=== PATIENT | male | born 1955 | race Caucasian/White ===

== ENCOUNTER 2021-06-18 16:28 | Inpatient (IN) | payer MEDICARE ==
[~2021-06-18] VITALS: Ht 177.8 cm; Wt 88.0 kg
[2021-06-18 16:39] VITALS: BP 142/86
[2021-06-18] MEDS ORDERED: RAYOS5 MG PO (16:44)
[2021-06-18] MEDS ORDERED: LISINOPRIL10 MG PO (16:45)
[2021-06-18 17:12] LABS: HEMATOCRIT 54.4 % (42.0-52.0); HEMOGLOBIN 17.8 gm/dL (14.0-18.0); MCH 30.7 pg (26.0-34.0); MCHC 32.7 g/dL (28.0-37.0); MCV 93.8 fL (80.0-100.0); MPV 9.8 fl. (7.2-11.1); NUCLEATED RBCS 0 /100WBC; PLATELET COUNT* 252 thou/uL (150-400); RBC 5.79 mil/uL (4.50-6.00); RDW-CV 13.8 % (10.5-14.5); WBC 14.2 thou/uL (4.0-11.0)
[2021-06-18 17:37] LABS: ALBUMIN 3.6 g/dL (3.4-5.0); CALCIUM 8.7 mg/dL (8.5-10.1); CREATININE 1.2 mg/dL (0.6-1.3); MAGNESIUM 2.2 mg/dL (1.8-2.4); TOTAL BILIRUBIN 0.5 mg/dL (<0.1-1.0); TOTAL PROTEIN 8.1 g/dL (6.4-8.2)
[2021-06-18 17:41] LABS: POTASSIUM 6.3 mmol/L (3.5-5.1)
[2021-06-18 17:56] LABS: ABSOLUTE LYMPHOCYTES 0.3 thou/uL (0.8-5.3); ABSOLUTE MONOCYTES 0.4 thou/uL (0.0-1.2); ABSOLUTE NEUTROPHILS 13.5 thou/uL (1.6-8.1); PLATELET ESTIMATE ADEQUATE
[2021-06-18 21:43] VITALS: BP 82/44
[2021-06-19] VITALS (12 sets, daily range): BP systolic 80–109; BP diastolic 48–68
[2021-06-19 02:45] LABS: CALCIUM 7.4 mg/dL (8.5-10.1); CREATININE 0.9 mg/dL (0.6-1.3)
[2021-06-19 02:50] LABS: POTASSIUM 5.1 mmol/L (3.5-5.1)
--- NOTE | 2021-06-19 08:50 | NUR ---
PT'S SPOUSE, CIERRA, CALLED FOR UPDATE ON THE PATIENT. CIERRA WAS GIVEN UPDATE WITH PATIENT'S PERMISSION. CIERRA INFORMED THIS RN THAT THE PATIENT IS A DNR AND HAS SEVERE EMPHYSEMA. PT DOES HAVE HOSPICE PICKED OUT IF NEEDED.
--- NOTE | 2021-06-19 10:05 | NUR ---
ASSUMED PT CARE AT THIS TIME
[2021-06-19 12:06] LABS: INFLUENZA A ANTIGEN Negative (Negative); INFLUENZA B ANTIGEN Negative (Negative)
--- NOTE | 2021-06-19 13:15 | EKG ---
[place] [address] ELECTROCARDIOGRAM REPORT Name: SANGEETA MILES Room: [address] ADM IN M.R.#: [id number] Admission: 06/18/21 Attend Phys: Jeffrey Knapp Discharge: Date of : 51 Date of Service: 06/18/21 1648 Report #: [id number] THIS REPORT FOR: //name// [facility] ED Test Date: 2021-06-18 Test Time: 16:48:01 Pat Name: SANGEETA MILES Department: Room: [facility] Gender: M Tank Builder: ABDIAS : 1955 Requested By: Castillo Rendon Order Number: [id number] MD: Ajay Del Rosario Measurements Intervals [place] Rate: 121 P: 86 IA: 166 QRS: 165 QRSD: 89 T: 64 QT: 299 QTc: 425 Interpretive Statements Sinus tachycardia Consider right atrial enlargement Anterior infarct, old ST elevation suggests acute pericarditis Artifact in lead(s) I,II,aVR,V1,V6 No previous ECG available for comparison Electronically Signed On 06-19-2021 13:15:15 TAKE AWAY WORKER by Ajay Del Rosario [email or web address] <ELECTRONICALLY SIGNED> By: Ajay Del Rosario MD, FACC 06/19/21 1315 1648 1648 Ajay Del Rosario MD, FAC /EPI
--- NOTE | 2021-06-19 18:42 | NUR ---
PATIENT ARRIVED TO THE UNIT AT 1145. O2 AT 10L PER NL. SYSTEM ASSESSMENT CHARTED. CURRENTLY IN ISOLATION. PERSONAL BELONGINGS AT THE BEDSIDE. PHARMACY AND CONSULTS NOTIFIED OF ADMIT. WILL CONTINUE PLAN OF CARE.
[2021-06-20] VITALS (25 sets, daily range): BP systolic 80–138; BP diastolic 47–79
[2021-06-20 04:19] LABS: HEMATOCRIT 43.4 % (42.0-52.0); MCH 29.7 pg (26.0-34.0); MCHC 31.7 g/dL (28.0-37.0); MCV 93.8 fL (80.0-100.0); MPV 8.8 fl. (7.2-11.1); RBC 4.62 mil/uL (4.50-6.00); RDW-CV 13.7 % (10.5-14.5); WBC 11.2 thou/uL (4.0-11.0)
[2021-06-20 04:34] LABS: HEMOGLOBIN 13.7 gm/dL (14.0-18.0)
[2021-06-20 04:37] LABS: ALBUMIN 2.2 g/dL (3.4-5.0); CALCIUM 7.3 mg/dL (8.5-10.1); CREATININE 0.7 mg/dL (0.6-1.3); MAGNESIUM 2.1 mg/dL (1.8-2.4); POTASSIUM 4.5 mmol/L (3.5-5.1); TOTAL BILIRUBIN 0.2 mg/dL (<0.1-1.0); TOTAL PROTEIN 5.1 g/dL (6.4-8.2)
--- NOTE | 2021-06-20 07:21 | NUR ---
REPORT RECIEVED AT BEGINNING OF SHIFT AND CARE ASSUMMED. PT AAOX4 NO ACUTE DISTRESS AT THIS TIME. PT HAS BEEN AWAKE MOST OF THE SHIFT BUT DENIES DISTRESS OR PAIN. PT DESATS QUICKLY WITH SLOW RECOVERY WHEN UP ON SIDE OF BED TO USE URINAL. IV NS INFUSING AT 150CC/HR VIA PUMP ORDERED. SEE CHART FOR VS AND MEDICATIONS. MONITORS INTACT. WILL CONTINUE TO MONITOR.
--- NOTE | 2021-06-20 11:55 | 2DMMODE ---
[place] [address] 2 D/M-MODE ECHOCARDIOGRAM Name: SANGEETA MILES Room: [address] IN Michelle.#: [id number] Admission: 06/18/21 Attend Phys: Jeffrey Knapp Discharge: Date of : 51 Date of Service: 06/20/21 1154 Report #: [id number] THIS REPORT FOR: cc: Chemo Tineo MD, Jean MD Blick,Alex Burt MD [facility] ~ APPROVED REPORT Study performed: 06/20/2021 09:26:04 EXAM: Comprehensive 2D, Doppler, and color-flow Echocardiogram Patient Location: In-Patient Room #: 002 Status: routine BSA: 2.06 HR: 92 bpm BP: 81/47 mmHg Rhythm: NSR Other Information Study Quality: Good Technically limited study due to poor apical windows. Indications Cardiomegaly 2D Dimensions IVSd: 7.91 (7-11mm) LVOT Diam: 20.70 (18-24mm) LVDd: 32.67 mm PWd: 6.60 (7-11mm) Ascending Ao: 32.31 (22-36mm) LVDs: 18.62 (25-40mm) Aortic Valve AoV Peak Alexey.: 1.01 m/s AO Peak Gr.: 4.12 mmHg LVOT Max P.10 mmHg AO Mean Gr.: 2.63 mmHg LVOT Mean P.99 mmHg LVOT Max V: 0.88 m/s AO V2 VTI: 19.55 cm LVOT Mean V: 0.69 m/s GIOVANI (VTI): 3.23 cm2 LVOT V1 VTI: 18.79 cm Mitral Valve MV Decel. Time: 146.72 ms MV E Max Alexey.: 1.11 m/[place] [address] 2 D/M-MODE ECHOCARDIOGRAM Name: SANGEETA MILES Room: [address] IN .R.#: [id number] Admission: 06/18/21 Attend Phys: Jeffrey Knapp Discharge: Date of : 51 Date of Service: 06/20/21 1154 Report #: [id number] MV PHT: 42.55 ms MVA (PHT): 5.17 cm2 Pulmonary Valve PV Peak Alexey.: 1.06 m/s PV Peak Gr.: 4.52 mmHg Left Ventricle The left ventricle is normal size. There is normal LV segmental wall motion. There is normal left ventricular wall thickness. Left ventricular systolic function is normal. The left ventricular ejection fraction is within the normal range. LVEF is 60-65%. The left ventricular diastolic function is normal. Right Ventricle Right ventricle is dilated. The right ventricular systolic function is normal. Atria The left atrium size is normal. Right atrium is dilated. Aortic Valve The aortic valve is normal in structure. No aortic regurgitation is present. There is no aortic valvular stenosis. Mitral Valve The mitral valve is normal in structure. There is no mitral valve regurgitation noted. No evidence of mitral valve stenosis. Tricuspid Valve The tricuspid valve is normal in structure. There is no tricuspid valve regurgitation noted. Pulmonic Valve The pulmonary valve is normal in structure. There is no pulmonic valvular regurgitation. Great Vessels The aortic root is normal in size. IVC is normal in size and collapses >50% with inspiration. Pericardium There is no pericardial effusion. <Conclusion> [place] [address] 2 D/M-MODE ECHOCARDIOGRAM Name: SANGEETA MILES Room: [address] IN .R.#: [id number] Admission: 06/18/21 Attend Phys: Jeffrey Knapp Discharge: Date of : 51 Date of Service: 06/20/21 1154 Report #: [id number] LVEF is 60-65%. Right ventricle is dilated. <ELECTRONICALLY SIGNED> By: Alex Almodovar MD, [facility] 06/20/21 1154 1154 1154 Alex Almodovar MD, FACC /INF
--- NOTE | 2021-06-20 13:46 | NUR ---
Pt is admitted to the hospital with Covid/elevated Troponin on 06/18/21. Called sister - Chloe Petersen at: [phone] to complete assessment. She reports pt lives in a house with his estranged with 2 steps to enter. Pt ambulates independently but requires 4 liters of oxygen. Sister didn't know what oxygen company pt utilizes. Pt was previously independent in ADL's. No hx of SNF/HH. Sister reports her brother had a telemed visit with his PCP last week. Sister reports when pt was last admitted to [facility] he completed DPOA paperwork listing herself and his son - Levon ([phone]) who lives in [place], [place] as DPOA, but that she didn't have a copy. CM to continue to follow for discharge planning.
[2021-06-20 15:33] LABS: INR 1.1; PROTIME 11.4 Seconds (9.20-11.50)
[2021-06-21] VITALS (15 sets, daily range): BP systolic 88–139; BP diastolic 53–81
[2021-06-21 04:21] LABS: HEMATOCRIT 44.1 % (42.0-52.0); HEMOGLOBIN 14.3 gm/dL (14.0-18.0); MCH 30.3 pg (26.0-34.0); MCHC 32.5 g/dL (28.0-37.0); MCV 93.4 fL (80.0-100.0); MPV 8.9 fl. (7.2-11.1); RBC 4.72 mil/uL (4.50-6.00); RDW-CV 13.8 % (10.5-14.5); WBC 11.1 thou/uL (4.0-11.0)
[2021-06-21 04:39] LABS: ALBUMIN 2.3 g/dL (3.4-5.0); CALCIUM 7.7 mg/dL (8.5-10.1); CREATININE 0.7 mg/dL (0.6-1.3); MAGNESIUM 2.3 mg/dL (1.8-2.4); POTASSIUM 4.6 mmol/L (3.5-5.1); TOTAL BILIRUBIN 0.2 mg/dL (<0.1-1.0); TOTAL PROTEIN 5.3 g/dL (6.4-8.2)
--- NOTE | 2021-06-21 05:46 | NUR ---
Pt has rested well through the shift, he remains alert and oriented, rouses easily for cares, denies any discomfort. Vitals are stable, urine output is adequate. Pt has transfer orders.
--- NOTE | 2021-06-21 08:13 | CON ---
[facility] [address] [place] [address] CONSULTATION Name: SANGEETA MILES Room: [address] IN M.R.#: [id number] Admission: 06/18/21 Attend Phys: Nicole Gay Discharge: Date of : 51 Report #: [id number] THIS REPORT FOR: cc: Chemo Tineo MD,Chemo Del Rosario,Ajay Miguel MD FACC ~ cc: Chemo Tieno MD DATE OF CONSULTATION: 06/19/2021 CARDIOLOGY CONSULT INDICATION: Elevated troponin. HISTORY OF PRESENT ILLNESS: The patient is a very pleasant 65-year-old gentleman who was admitted to the hospital with COVID pneumonia. In this setting, he is noted to have a minimally elevated troponin of approximately 100. Primary complaint on admission to the hospital was shortness of breath. He has a long history of COPD. He wears oxygen at home. He is not having chest pain. He was having shortness of breath at rest and dyspnea. Since admission, the patient has received breathing treatments and other treatments and is now no longer complaining of significant shortness of breath. PAST MEDICAL HISTORY: 1. Hypertension. 2. COPD. HOME MEDICATIONS: Prednisone and lisinopril. ALLERGIES: SULFA. SOCIAL HISTORY: The patient smokes 2-3 cigarettes daily. He does not drink alcohol. REVIEW OF SYSTEMS: As per HPI, otherwise unremarkable. PHYSICAL EXAMINATION: VITAL SIGNS: Stable. Blood pressure 102/63, pulse is 77 and regular. Telemetry shows sinus rhythm. GENERAL: This is a thin, pleasant gentleman in no distress. Mood and affect appropriate. HEENT: The patient is wearing glasses. Extraocular muscles intact. Mucous membranes are moist. NECK: Shows no jugular venous distention. CHEST: Reveals diminished breath sounds throughout without [place] [address] CONSULTATION Name: SANGEETA MILES Room: [address] IN [facility]#: [id number] Admission: 06/18/21 Attend Phys: Nicole Gay Discharge: Date of : 51 Report #: [id number] CARDIAC: Reveals a distant S1 and S2 without gallop or murmur. ABDOMEN: Scaphoid, soft and nontender. Bowel sounds present. EXTREMITIES: No clubbing, cyanosis or edema. DIAGNOSTIC DATA: EKG shows sinus rhythm without acute ST or T-wave abnormality. There is late transition noted. Chest x-ray shows hyperexpanded lung volumes. LABORATORY DATA: Reviewed. Electrolytes within normal limits. BUN 25, creatinine 0.9, serum glucose 129. High sensitivity troponins 109, 199, 197 and 110. White blood cell count 14.2, hemoglobin 17.8, platelet count 252,000. IMPRESSION AND RECOMMENDATIONS: 1. Minimally elevated troponin. The patient is not having any symptoms to suggest acute coronary syndrome. We will obtain echocardiogram to evaluate underlying cardiac structure and function. At this point, I do not think further noninvasive or invasive evaluation necessary. We will follow clinically. 2. Hypertension. Presently low normal on home regimen. We would make no adjustments at this time. 3. Chronic obstructive pulmonary disease. Per hospitalist. 4. COVID-19 infection. <ELECTRONICALLY SIGNED> By: Ajay Del Rosario MD, FACC 06/21/21 0813 1140 [id number] jay Del Rosario MD, FACC /nt
--- NOTE | 2021-06-21 18:52 | NUR ---
[facility] at 1820. Pt was transfered from ICU. Pt is alert and oriented. Denies any pain. Pt was made comfortable. Pt was placed on oxgyen. Pt sitting up in the bed. Will continue to provide care for patient.
--- NOTE | 2021-06-21 19:16 | CON ---
[address] [address] CONSULTATION Name: SANGEETA MILES Room: [address] IN M.R.#: [id number] Admission: 06/18/21 Attend Phys: Nicole Gay Discharge: Date of : 51 Report #: [id number] THIS REPORT FOR: cc: Chemo Tineo MD, Jean MD Pervez,Nishant JOSHUA ~ DATE OF CONSULTATION: 06/20/2021 Consult has been requested by Dr. Ayoub. INDICATION FOR CONSULTATION: COVID-19/acute on chronic hypoxemic respiratory failure. HISTORY OF PRESENT ILLNESS: A 65-year-old gentleman with past medical history includes a history of oxygen dependent COPD. He is not in a CPAP or BiPAP long-term. He has not been vaccinated for COVID-19. He is now here with shortness of breath and a cough. There is small amount of sputum production. There is no swelling of lower extremities or calf pain. He currently is not having upper respiratory complaints. He did have mild diarrhea initially. The patient's blood pressure has been on the lower side, but currently appears to be well perfused with a blood pressure of 100/50. He is currently on 4 liters of oxygen, which is his baseline. He is saturating in the mid to high 90s. REVIEW OF SYSTEMS: For 12 points is negative except as mentioned above. PAST MEDICAL HISTORY: COPD, hypertension. There is recent echo shows a left ventricular ejection fraction of 60-65% without significant elevation of right heart pressures. Right heart, however, is reported to be dilated. SOCIAL HISTORY: Extensive history of smoking in the past. CURRENT MEDICATIONS: List in [facility] reviewed. HOME MEDICATIONS: List in [facility] reviewed. ALLERGIES: SULFONAMIDE ANTIBIOTICS. FAMILY HISTORY: No pertinent family history. PHYSICAL EXAMINATION: GENERAL: He is alert, awake and oriented. VITAL SIGNS: In the records reviewed. NECK: Does not show raised JVP. CHEST: Breath sounds are bilaterally equal, decreased. No added sounds. HEART: [place] [address] CONSULTATION Name: SANGEETA MILES Room: [address] IN [facility].#: [id number] Admission: 06/18/21 Attend Phys: Nicole Gay Discharge: Date of : 51 Report #: [id number] ABDOMEN: Soft and nontender. EXTREMITIES: Lower extremities, no edema, no calf tenderness. Chest x-rays show chronic changes in [facility] reviewed. ASSESSMENT AND PLAN: 1. Acute on chronic hypoxemic respiratory failure secondary to COVID-19. Continue to titrate oxygen. Avoid supine sleep. 2. COVID-19. We will continue with dexamethasone. We will, however, start to taper. He is in remdesivir. We will continue follow liver function tests. 3. Pulmonary infiltrates. He is on Zithromax and ceftriaxone to cover for secondary bacterial infections. For now, continue with ceftriaxone. We will be inclined to discontinue azithromycin soon if he continues to improve. 4. Deep venous thrombosis prophylaxis, evaluation for thromboembolic phenomena. He currently is on full dose anticoagulation. I would check D-dimer. If elevated, then I will consider obtaining a CTA chest. If not elevated, then I will be inclined to cut back on Lovenox dose. 5. History of chronic obstructive pulmonary disease. Note that he is on oxygen long-term, steroid as above. He is also on nebulized bronchodilators. 6. Hypotension. Blood pressure in fact is within the normal range at this time, toward the lower end of normal range appears to be well perfused. Watch closely. If hypotensive, then can cautiously give him a fluid bolus. If there is no increase in oxygen needs, also if no contraindication per Cardiology, then could be administered midodrine. 7. Clostridium difficile prophylaxis, Lactinex. 8. Gastrointestinal prophylaxis. We will order Pepcid. Thanks for this consultation. <ELECTRONICALLY SIGNED> By: Nishant Alvarez MD 06/21/21 1916 1315 1909Alulu Alvarez MD /nt
[2021-06-22] VITALS: BP 122/69
[2021-06-22 04:09] VITALS: BP 132/70
[2021-06-22 04:48] LABS: HEMATOCRIT 42.3 % (42.0-52.0); HEMOGLOBIN 13.8 gm/dL (14.0-18.0); MCH 30.4 pg (26.0-34.0); MCHC 32.6 g/dL (28.0-37.0); MCV 93.3 fL (80.0-100.0); MPV 8.7 fl. (7.2-11.1); RBC 4.53 mil/uL (4.50-6.00); RDW-CV 13.4 % (10.5-14.5); WBC 8.4 thou/uL (4.0-11.0)
[2021-06-22 05:33] LABS: ALBUMIN 2.2 g/dL (3.4-5.0); CALCIUM 7.7 mg/dL (8.5-10.1); CREATININE 0.5 mg/dL (0.6-1.3); MAGNESIUM 2.3 mg/dL (1.8-2.4); POTASSIUM 4.4 mmol/L (3.5-5.1); TOTAL BILIRUBIN 0.2 mg/dL (<0.1-1.0); TOTAL PROTEIN 4.9 g/dL (6.4-8.2)
[2021-06-22 07:42] VITALS: BP 128/74
[2021-06-22 12:00] VITALS: BP 125/70
--- NOTE | 2021-06-22 14:34 | NUR ---
PATIENT WAS ASKED AND EXPLAINED TWICE ON DAYSHIFT TO HAVE A SATURATION AND EXERCISE WALK. BOTH TIMES HE STATED HE WAS NOT READY. RN NOTIFIED AND IS AWARE.
[2021-06-22 16:00] VITALS: BP 136/82
--- NOTE | 2021-06-22 16:39 | NUR ---
CM FOLLOWUP PT NOT MED CLEAR. PT PENDING PT/OT EVAL. PT HAS HOME O2 ALREADY IN PLACE. CM TO FOLLOW FOR DC NEEDS.
[2021-06-22 20:30] VITALS: BP 143/74
[2021-06-23] VITALS: BP 131/71
[2021-06-23 04:00] VITALS: BP 138/77
[2021-06-23 04:12] LABS: HEMATOCRIT 43.4 % (42.0-52.0); HEMOGLOBIN 14.3 gm/dL (14.0-18.0); MCH 30.3 pg (26.0-34.0); MCHC 32.9 g/dL (28.0-37.0); MCV 92.3 fL (80.0-100.0); MPV 8.7 fl. (7.2-11.1); RBC 4.7 mil/uL (4.50-6.00); RDW-CV 13.4 % (10.5-14.5); WBC 9.8 thou/uL (4.0-11.0)
[2021-06-23 04:32] LABS: ALBUMIN 2.2 g/dL (3.4-5.0); CALCIUM 7.8 mg/dL (8.5-10.1); CREATININE 0.5 mg/dL (0.6-1.3); MAGNESIUM 2.3 mg/dL (1.8-2.4); POTASSIUM 4.5 mmol/L (3.5-5.1); TOTAL BILIRUBIN 0.3 mg/dL (<0.1-1.0); TOTAL PROTEIN 5.1 g/dL (6.4-8.2)
[2021-06-23 08:00] VITALS: BP 154/87
[2021-06-23] MEDS ORDERED: CEFDINIR300 MG PO (10:43)
[2021-06-23] MEDS ORDERED: IPRAT-ALBUT 0.5-3 ML INH (10:43)
[2021-06-23] MEDS ORDERED: DEXAMETHASONE 22 M1 PO (10:43)
[2021-06-23] MEDS ORDERED: DOXYCYCLINE 10100 MG PO (10:43)
[2021-06-23 12:09] VITALS: BP 147/80
[2021-06-23 16:15] VITALS: BP 132/77
--- NOTE | 2021-06-23 16:30 | NUR ---
CM FOLLOWUP PT NOT CLEAR FOR DC AND ONLY COMPLETED 5 STEPS WITH P.T. PT REQUIRES SNF AT [place]. PT REFERRED TO [facility] ([phone]) THAT IS THE ONLY SNF ACCEPTING COVID+. PT CURRENTLY 5 DAYS PAST COVID DX. CM TO FOLLOW.
--- NOTE | 2021-06-23 19:30 | NUR ---
PATIENT IS ORIENTED AND RESTING IN BED. PATIENT VERBALIZED THAT HE WANTED TO STAY IN THE HOSPITAL DUE TO WEAKNESS. PATIENT HAS LABORED RESPIRATIONS AND OXYGEN 4 LITERS PER NC. PATIENT SEEMED A BIT APPREHENSIVE TODAY. DID REQUEST TO BE PUT ON BIPAP LATE MORNING. ALSO REQUESTED BREATHING TREATMENT THIS AFTERNOON. PATIENT WANTED TO STAY IN BED TODAY. SAID HE IS TOO TIRED TO BE UP. PATIENT USES URINAL WITH GOOD URINARY OUTPUT. IV SITES X2. DR WILSON AT BEDSIDE TODAY TALKING WITH PATIENT. PLAN IS TO HAVE PATIENT GO TO LONGTERM OR REHAB.
[2021-06-23 20:00] VITALS: BP 139/72
[2021-06-24 00:27] VITALS: BP 119/64
[2021-06-24 04:15] VITALS: BP 109/66
[2021-06-24 07:55] VITALS: BP 136/82
[2021-06-24 12:05] VITALS: BP 139/79
[2021-06-24 16:00] VITALS: BP 129/73
--- NOTE | 2021-06-24 16:22 | NUR ---
CM FOLLOWUP PT NOT MED CLEAR YET. PT ACCEPTED TO [facility] ([phone]). PT INFORMED AND EXPRESSED DESIRE TO GO WHEN MED CLEAR. PT CAN DC TO [facility] OVER THE WEEKEND IF MED CLEAR. CALL [facility] AT [facility] TO ARRANGE ADMITTANCE. [facility] - [phone]
[2021-06-24 20:00] VITALS: BP 129/84
[2021-06-25 00:04] VITALS: BP 122/74
[2021-06-25 03:49] LABS: ABSOLUTE LYMPHOCYTES 0.5 thou/uL (0.8-5.3); ABSOLUTE MONOCYTES 0.8 thou/uL (0.0-1.2); ABSOLUTE NEUTROPHILS 9.1 thou/uL (1.6-8.1); BASOPHILS 0.1 %; HEMATOCRIT 45.8 % (42.0-52.0); HEMOGLOBIN 15.1 gm/dL (14.0-18.0); MCH 30.3 pg (26.0-34.0); MCHC 32.8 g/dL (28.0-37.0); MCV 92.2 fL (80.0-100.0); MONOCYTES 7.7 %; MPV 9.2 fl. (7.2-11.1); NUCLEATED RBCS 0 /100WBC; PLATELET COUNT* 242 thou/uL (150-400); POLYS 87.2 %; RBC 4.97 mil/uL (4.50-6.00); RDW-CV 13.5 % (10.5-14.5); WBC 10.4 thou/uL (4.0-11.0)
[2021-06-25 03:59] VITALS: BP 113/72
[2021-06-25 04:00] LABS: ALBUMIN 2.5 g/dL (3.4-5.0); CALCIUM 8.1 mg/dL (8.5-10.1); CREATININE 0.6 mg/dL (0.6-1.3); POTASSIUM 4.7 mmol/L (3.5-5.1); TOTAL BILIRUBIN 0.3 mg/dL (<0.1-1.0); TOTAL PROTEIN 5.3 g/dL (6.4-8.2)
[2021-06-25 09:00] VITALS: BP 141/78
[2021-06-25 12:00] VITALS: BP 134/85
[2021-06-25 16:00] VITALS: BP 115/65; BP 115/73
[2021-06-25 20:10] VITALS: BP 116/69
[2021-06-26] VITALS: BP 110/64
--- NOTE | 2021-06-26 03:14 | NUR ---
ASSUMED CARE OF PT AT 1900. VSS. NARAYANAN. PT IS ALERT AND ORIENTED, PT IS ON 4 LITERS O2. PT IS IN SINUS RYTHM ON THE TELEMETRY. PT IS RESTING COMFORTABLY IN BED. RESPIRATIONS ARE EVEN AND NONLABORED. WILL CONTINUE TO MONITOR PT.
[2021-06-26 04:00] VITALS: BP 146/83
[2021-06-26 05:44] LABS: ABSOLUTE LYMPHOCYTES 0.8 thou/uL (0.8-5.3); ABSOLUTE MONOCYTES 0.8 thou/uL (0.0-1.2); EOSINOPHILS 0.1 %; MCV 93.6 fL (80.0-100.0); MONOCYTES 7.9 %; NUCLEATED RBCS 0 /100WBC; PLATELET COUNT* 233 thou/uL (150-400)
[2021-06-26 05:47] LABS: BASOPHILS 0.4 %; HEMATOCRIT 46.2 % (42.0-52.0); LYMPHOCYTES 7.1 %; MCH 30.3 pg (26.0-34.0); MCHC 32.4 g/dL (28.0-37.0); MPV 8.8 fl. (7.2-11.1); POLYS 84.5 %; RBC 4.94 mil/uL (4.50-6.00); RDW-CV 13.7 % (10.5-14.5); WBC 10.7 thou/uL (4.0-11.0)
[2021-06-26 06:02] LABS: CALCIUM 8.3 mg/dL (8.5-10.1); CREATININE 0.6 mg/dL (0.6-1.3); POTASSIUM 4.5 mmol/L (3.5-5.1)
[2021-06-26 09:00] VITALS: BP 114/69
[2021-06-26 12:00] VITALS: BP 113/71
[2021-06-26 16:11] VITALS: BP 111/67
[2021-06-26 20:10] VITALS: BP 116/65
--- NOTE | 2021-06-27 02:50 | NUR ---
ASSUMED CARE OF PT AT 1900. PT IS ALERT AND ORIENTED. VSS. PERRLA. PT IS ON 4 LITERS O2. PT IS IN SINUS RYTHM ON THE TELEMETRY. PT IS RESTING COMFORTABLY IN BED. RESPIRATIONS ARE EVEN AND NONLABORED. WILL CONTINUE TO MONITOR PT.
[2021-06-27 04:45] VITALS: BP 93/59
[2021-06-27 08:00] VITALS: BP 91/59
[2021-06-27] MEDS ORDERED: PROTONIX40 M2 PO (10:29)
[2021-06-27 11:16] VITALS: BP 91/59
[2021-06-27 11:57] VITALS: BP 101/55
--- NOTE | 2021-06-27 16:43 | NUR ---
CM FOLLOWUP PT MED CLEAR FOR DC AND DC'D TO [facility] ([phone]). DC DISCUSSED WITH PT AND SISTER (JOVAN [phone]). TRANSPORT PROVIDED BY [facility].
== END 2021-06-27 15:00 | DRG 871 ==
LOC: M.ERS 16:28 → M.TBA-ER 17:56 → M.ICU 17:56 → M.ORTHSURG 06-21 18:00
PROVIDERS: Emergency Medicine Emergency Medical Services; Internal Medicine; Internal Medicine Critical Care Medicine; ADMIT Internal Medicine; ATTEND Internal Medicine
PROC: 5A09357 Assistance with Respiratory Ventilation, Less than 24 Consecutive Hours, Continuous Positive Airway Pressure (ICD-10-PCS; principal; 2021-06-18)
PROC: 5A0935A Assistance with Respiratory Ventilation, Less than 24 Consecutive Hours, High Flow/Velocity Cannula (ICD-10-PCS; 2021-06-19)
PROC: XW033E5 Introduction of Remdesivir Anti-infective into Peripheral Vein, Percutaneous Approach, New Technology Group 5 (ICD-10-PCS; 2021-06-19)
PROC: 5A09357 Assistance with Respiratory Ventilation, Less than 24 Consecutive Hours, Continuous Positive Airway Pressure (ICD-10-PCS; 2021-06-23)
DX: A41.9 Sepsis, unspecified organism (principal); J96.21 Acute and chronic respiratory failure with hypoxia; U07.1 COVID-19; J12.82 Pneumonia due to coronavirus disease 2019; E43 Unspecified severe protein-calorie malnutrition; R64 Cachexia; E87.0 Hyperosmolality and hypernatremia; E87.6 Hypokalemia; Z66 Do not resuscitate; J43.9 Emphysema, unspecified; R77.8 Other specified abnormalities of plasma proteins; F17.210 Nicotine dependence, cigarettes, uncomplicated; I10 Essential (primary) hypertension; Z79.899 Other long term (current) drug therapy; Z88.2 Allergy status to sulfonamides; Z99.81 Dependence on supplemental oxygen; Z68.27 Body mass index [BMI] 27.0-27.9, adult